=== PATIENT | female | born 1995 ===

== ENCOUNTER 2019-07-29 19:42 | Outpatient (REF) | payer SELFPAY ==
[2019-08-02 11:41] LABS: Rubella IgG Ab (UVM) Positive
[2019-08-02 12:02] LABS: HBs Antibody, Quant <3.1 mIU/mL; Hepatitis B Surface Ab Negative
== END 2019-07-29 20:02 ==
LOC: NCHCN 19:42
PROVIDERS: PCP Nurse Practitioner Family; Visit Provider Nurse Practitioner Family
DX: Z11.59 Encounter for screening for other viral diseases (principal)
CPT/HCPCS: 86706; 86762

== ENCOUNTER 2020-08-29 12:20 | Outpatient (REF) | payer OTHER, SELFPAY ==
[2020-09-01 07:50] LABS: SARS-CoV-2 RNA Undetected (Undetected); SARS-CoV-2 Specimen Source Nasopharynx
== END 2020-08-29 12:40 ==
LOC: NCHCN 12:20
PROVIDERS: PCP Nurse Practitioner Family; Visit Provider Nurse Practitioner Family
DX: Z20.828 Contact with and (suspected) exposure to other viral communicable diseases (principal)
CPT/HCPCS: U0003

== ENCOUNTER 2020-09-12 22:23 | Outpatient (REF) | payer OTHER, SELFPAY ==
[2020-09-14 20:43] LABS: SARS-CoV-2 RNA Undetected (Undetected); SARS-CoV-2 Specimen Source Nasal
== END 2020-09-12 22:43 ==
LOC: NCHCN 22:23
PROVIDERS: PCP Nurse Practitioner Family; Visit Provider Nurse Practitioner Family
DX: Z20.828 Contact with and (suspected) exposure to other viral communicable diseases (principal)
CPT/HCPCS: U0003

== ENCOUNTER 2020-09-29 16:46 | Outpatient (REF) | payer OTHER, SELFPAY ==
[2020-10-03 09:14] LABS: SARS-CoV-2 RNA Not Detected (NotDetected); SARS-CoV-2 RNA Source Nasal/Nares
== END 2020-09-29 17:06 ==
LOC: NCHCN 16:46
PROVIDERS: PCP Nurse Practitioner Family; Visit Provider Nurse Practitioner Family
DX: Z20.828 Contact with and (suspected) exposure to other viral communicable diseases (principal)
CPT/HCPCS: U0003

== ENCOUNTER 2021-06-21 22:32 | Outpatient (REF) | payer OTHER, SELFPAY ==
[2021-06-26 09:04] LABS: Almond IgE <0.35 kU/L; Pine Nut, IgE <0.35 kU/L
[2021-06-26 09:06] LABS: Brazil Nut IgE <0.35 kU/L; Cashew IgE <0.35 kU/L; Peanut IgE <0.10 kU/L (<0.70); Pecan-Food IgE <0.35 kU/L
[2021-06-26 09:09] LABS: Coconut IgE <0.35 kU/L; Hazelnut-Food IgE <0.35 kU/L; Pistachio, IgE <0.35 kU/L; Walnut-Food IgE <0.35 kU/L
[2021-06-26 09:11] LABS: Macadamia Nut, IgE <0.35 kU/L
== END 2021-06-21 22:33 | disposition home or self-care (01) ==
LOC: LBN 22:32
PROVIDERS: PCP Nurse Practitioner Family; Visit Provider Internal Medicine
DX: T78.40XA Allergy, unspecified, initial encounter (principal); Z01.82 Encounter for allergy testing
CPT/HCPCS: 83520; 86003

== ENCOUNTER 2023-08-07 12:17 | Outpatient (REF) | payer BC, SELFPAY ==
--- OUTSIDE RECORDS SUMMARY | 2023-08-07 12:19 | XMS_ITS | Continuity of Care Document ---
Author Name Unknown Organization [facility] Address [address] [place] [address] Care Team Providers Care Digital Artist Name Role Phone Ibeth Zhou Primary Care Physician [phone] Encounter [facility] [id number] Date(s): 12/11/22 - 12/11/[address] [address] Encounter Diagnosis Axillary lymphadenopathy(Discharge Diagnosis) - 12/11/22 Discharge Disposition: Home or Self Care Attending Physician: Elias Arriaga PA-C Admitting Physician: Elias Arriaga PA-C Referring Physician: Elias Arriaga PA-C Allergies, Adverse Reactions, Alerts Substance Reaction Severity Status NICKEL Unknown Active polymyxin B sulfate Unknown Active bacitracin/HC/neomycin/polymyxin B topical Unknown Active Assessment and Plan Future Appointments Immunizations Given and Recorded Vaccine Date Status Refusal Reason SARS-CoV-2 (COVID-19) mRNA-1273 vaccine 01/02/21 R ecorded SARS-CoV-2 (COVID-19) mRNA-1273 vaccine 12/05/20 R ecorded tetanus-diphth toxoids (Td) adult/adol 1 09/04/18 Recorded varicella virus vaccine 10/12/13 Recorded varicella virus vaccine 09/08/13 Recorded meningococcal ACWY, unspecified formulat 07/14/12 Recorded meningococcal ACWY, unspecified formulat 05/16/08 Recorded HPV, unspecified formulation 11/28/09 Recorded HPV, unspecified formulation 06/01/09 Recorded HPV, unspecified formulation 05/19/08 Recorded Hep A, unspecified formulation 05/19/08 Recorded Hep A, unspecified formulation 12/26/06 Recorded tetanus/diphth/pertuss (Tdap) adult/adol 05/19/08 Recorded measles/mumps/rubella virus vaccine 12/26/06 Recor ded measles/mumps/rubella virus vaccine 05/18/97 Recor ded diphtheria/pertussis, acellular/tetanus 02/02/01 R ecorded diphtheria/pertussis, acellular/tetanus 07/18/97 R ecorded poliovirus vaccine, inactivated 02/02/01 Recorded Hib, unspecified formulation 05/18/97 Recorded Hib, unspecified formulation 96 Recorded Hib, unspecified formulation 96 Recorded Hib, unspecified formulation 96 Recorded hepatitis B pediatric vaccine 96 Recorded hepatitis B pediatric vaccine 96 Recorded hepatitis B pediatric vaccine 96 Recorded poliovirus vaccine, live, trivalent 96 Recor ded poliovirus vaccine, live, trivalent 96 Recor ded poliovirus vaccine, live, trivalent 96 Recor ded Td(adult) unspecified formulation 96 Recorde d Td(adult) unspecified formulation 96 Recorde d Td(adult) unspecified formulation 96 Recorde d Not Given Vaccine Date Status Refusal Reason pneumococcal 23-polyvalent vaccine 2 04/13/20 Not Given Patient Refuses 1Result Comment: Patient tolerated injection and bandaid applied to injection site. 2Result Comment: Patient Declined; Last Modified by Cecilia Francois, Pharmacy Stock Clerk 04-13-2020, 13:04 Medications Mirena 52 mg intrauteral device 52 mg 1 EA, 0 Refill(s) Start Date: 11/21/22 Status: Ordered Problem List Condition Confirmation Course Effective Dates Status Health St atus Informant Electronic cigarette user Confirmed 03/08/21 Active Procedures Procedure Date Related Diagnosis Body Site Status Due 03/2023 1 04/12/20 Completed Extraction of wisdom tooth 11/30/13 Completed 1Pap Due - 03/2023 04/13/20 - Negative Social History Social History Type Response Tobacco Never tobacco user T obacco Use:. Sex Female Patient Care team information Personnel Name: Ibeth Zhou NP Address: Address: [address] [place] [id number]
--- OUTSIDE RECORDS SUMMARY | 2023-08-07 12:19 | XMS_ITS | Continuity of Care Document ---
Author Name Unknown Organization [facility] Address [address] [place] [address] Care Team Providers Care Injection Molding Operator Name Role Phone Ibeth Zhou Primary Care Physician Encounter [facility] [id number] Date(s): 11/21/22 - 11/21/[address] [address] Encounter Diagnosis Axillary lymphadenopathy(Discharge Diagnosis) - 11/21/22 Discharge Disposition: Home or Self Care Attending Physician: Elias Arriaga PA-C Admitting Physician: Elias Arriaga PA-C Allergies, Adverse Reactions, Alerts Substance Reaction Severity Status NICKEL Unknown Active polymyxin B sulfate Unknown Active bacitracin/HC/neomycin/polymyxin B topical Unknown Active Assessment and Plan Future Appointments Future Scheduled Tests Radiology* US Extremity Nonvascular Limited Left 11/21/22 * US Extremity Nonvascular Limited Right 11/21/22 Immunizations Given and Recorded Vaccine Date Status [...] Patient Declined; Last Modified by Cecilia Francois, Adaptive Physical Educator 04-13-2020, 13:04 Medications Mirena 52 mg intrauteral device 52 mg 1 EA, 0 Refill(s) Start Date: 11/21/22 Status: Ordered Problem List Condition Confirmation Course Effective Dates Status Health St atus Informant Electronic cigarette user Confirmed 03/08/21 Active Procedures Procedure Date Related Diagnosis Body Site Status Extraction of wisdom tooth 11/30/13 Completed Results Laboratory List Name Date CBC w/ Diff 11/21/22 Automated Diff 11/21/22 Most recent to oldest [Reference Range]: 1 WBC [5.0-10.0 x10^3/mcL] 6.9 x10^3/mcL (11/21/22 10:00 AM) RBC [4.1-5.3 x10^6/mcL] 4.4 x10^6/mcL (11/21/22 10:00 AM) Neutro Auto [40.0-75.0 %] 56.8 % (11/21/22 10:00 AM) Lymph Auto [20.0-50.0 %] 33.1 % (11/21/22 10:00 AM) [place] Auto [2.0-15.0 %] 6.4 % (11/21/22 10:00 AM) Basophil Auto [0.0-1.0 %] 0.7 % (11/21/22 10:00 AM) MCV [80.0-96.0] 97.0 *HI* (11/21/22 10:00 AM) MCHC [31.0-35.0 g/dL] 32.0 g/dL (11/21/22 10:00 AM) Hct [37.0-47.0 %] 42.2 % (11/21/22 10:00 AM) MCH [26.0-32.0 pg] 31.0 pg (11/21/22 10:00 AM) Neutro Absolute 3.9 x10^3/mcL *NA* (11/21/22 10:00 AM) Hgb [12.0-16.0 g/dL] 13.5 g/dL (11/21/22 10:00 AM) Platelets [130-450 x10^3/mcL] 277 x10^3/ mcL (11/21/22 10:00 AM) RDW-CV [11.7-17.0 %] 12.2 % (11/21/22 10:00 AM) Imm Gran Auto [0.0-0.9 %] 0.1 % (11/21/22 10:00 AM) Eos, Auto [1.0-6.0 %] 2.9 % (11/21/22 10:00 AM) Social History Social History Type Response Tobacco Never tobacco user T obacco Use:. Sex Female Patient Care team information Personnel Name: Ibeth Zhou NP Address: Address: [address] [place] [id number]
--- OUTSIDE RECORDS SUMMARY | 2023-08-07 12:19 | XMS_ITS | Continuity of Care Document ---
Author Name Unknown Organization [facility] Address [address] [place] [address] Care Team Providers Care Oyster Fisherman Name Role Phone Ibeth Zhou Primary Care Physician Encounter [facility] Date(s): 12/12/22 - 12/12/[address] [address] Discharge Disposition: Home or Self Care Attending Physician: Citlalli Guzman CNM Admitting Physician: Citlalli Guzman CNM Referring Physician: Citlalli Guzman CNM Allergies, Adverse Reactions, Alerts Substance Reaction Severity Status NICKEL Unknown Active polymyxin B sulfate Unknown Active bacitracin/HC/neomycin/polymyxin B topical Unknown Active Assessment and Plan Future Appointments Diagnostic Tests Pending * PAP Test [facility] 12/12/22 Immunizations Given and Recorded Vaccine Date Status [...] Patient Declined; Last Modified by Cecilia Francois, Small Engine Technician 04-13-2020, 13:04 Medications Mirena 52 mg intrauteral [...] Personnel Name: Ibeth Zhou NP Address: Address: [address] [place] [id number]
[2023-08-07 14:58] LABS: HCG Quant, Pregnancy 1 mIU/mL (1-3)
== END 2023-08-07 12:18 | disposition home or self-care (01) ==
LOC: NCHCN 12:17
PROVIDERS: PCP Nurse Practitioner Family; Visit Provider Internal Medicine
DX: Z32.00 Encounter for pregnancy test, result unknown (principal)
CPT/HCPCS: 84702